=== PATIENT | female | born 1980 | race American Indian/Alaskan Native ===

== ENCOUNTER 2020-09-06 06:33 | Emergency (ER) | payer SELFPAY ==
[2020-09-06 06:52] VITALS: BP 121/62
--- NOTE | 2020-09-06 08:24 | XRay Report ---
RIGHT ANKLE 3 VIEW(S) INDICATION / CLINICAL INFORMATION: right ankle pain COMPARISON: None available. FINDINGS: BONES / JOINT(S): No acute fracture or subluxation. No significant arthritis. SOFT TISSUES: No significant abnormality. ADDITIONAL FINDINGS: Nonpost inflammatory calcaneal enthesophytes are seen at the attachment of the A chilles and plantar tendon aponeurosis Signer Name: Ishmael Toribio MD Signed: 09/06/2020 8:20 AM Workstation Name: [employer]
--- NOTE | 2020-09-06 08:25 | XRay Report ---
RIGHT KNEE 3 VIEW(S) INDICATION / CLINICAL INFORMATION: right knee pain COMPARISON: None available. FINDINGS: BONES / JOINT(S): No acute fracture or subluxation. Moderate tricompartmental degenerative arthrosis is present with moderate joint effusion SOFT TISSUES: No significant abnormality. ADDITIONAL FINDINGS: None. Signer Name: Ishmael Toribio MD Signed: 09/06/2020 8:20 AM Workstation Name: [email or web address]
== END 2020-09-06 06:55 | disposition left against medical advice (07) ==
LOC: ED 06:33
DX: M25.561 Pain in right knee (principal); Z53.21 Procedure and treatment not carried out due to patient leaving prior to being seen by health care provider